=== PATIENT | female | born 1995 | race Two or more races ===

== ENCOUNTER 2022-10-03 12:07 | Outpatient (CLI) | payer OTHER | END 2022-10-03 13:24 | disposition home or self-care (01) | LOC: PRENATAL 12:07 | PROVIDERS: ATTEND Obstetrics & Gynecology Maternal & Fetal Medicine | DX: O36.80X0 Pregnancy with inconclusive fetal viability, not applicable or unspecified (principal); Z3A.13 13 weeks gestation of pregnancy ==

== ENCOUNTER 2022-11-19 08:18 | Outpatient (CLI) | payer OTHER | END 2022-11-19 09:20 | disposition home or self-care (01) | LOC: PRENATAL 08:18 | PROVIDERS: ATTEND Obstetrics & Gynecology Maternal & Fetal Medicine | DX: O35.3XX0 Maternal care for (suspected) damage to fetus from viral disease in mother, not applicable or unspecified (principal); O44.00 Complete placenta previa NOS or without hemorrhage, unspecified trimester; Z3A.19 19 weeks gestation of pregnancy ==

== ENCOUNTER 2023-02-18 10:09 | Outpatient (CLI) | payer OTHER | END 2023-02-18 10:40 | disposition home or self-care (01) | LOC: PRENATAL 10:09 | PROVIDERS: ATTEND Obstetrics & Gynecology Maternal & Fetal Medicine | DX: O26.849 Uterine size-date discrepancy, unspecified trimester (principal); O36.8199 Decreased fetal movements, unspecified trimester, other fetus; Z3A.32 32 weeks gestation of pregnancy ==

== ENCOUNTER 2023-03-07 17:08 | Outpatient (CLI) | payer OTHER ==
[2023-03-07] MEDS ORDERED: PRENATAL TABLE1 EAC1 PO (17:24)
[2023-03-07] MEDS ORDERED: PEPCID AC10 MG PO (17:25)
[2023-03-07 17:39] LABS: URINE APPEARANCE Cloudy; URINE BILIRRUBIN Negative (NEGATIVE); URINE BLOOD Moderate; URINE COLOR Yellow; URINE GLUCOSE Negative (NEGATIVE); URINE LEUKOCYTE Moderate; URINE NITRATE Positive
[2023-03-07 17:40] LABS: URINE BACTERIA 2755.4 uL (0.0-1933); URINE EPITHELIAL CELLS 28.2 uL (0.0-38.8); URINE RBC 158.6 uL (0.0-20.8); URINE WBC 1668.6 uL (0.0-23.2)
[2023-03-07 17:49] LABS: URINE PROTEIN 300 (NEGATIVE)
[2023-03-07 17:59] LABS: HEMATOCRIT 38.6 % (36.0-45.00); HEMOGLOBIN 12.9 g/dL (12.0-15.00); MEAN CELL VOLUME 96.7 fL (80.00-100.00); MEAN CORPUSCULAR HEMOGLOBIN 32.4 pg (27.00-32.0); MEAN CORPUSCULAR HGB CONC 33.5 g/dl (32.0-36.0); PLATELET COUNT 216 K/uL (150-450); RED BLOOD COUNT 3.99 M/uL (4.00-6.00)
== END 2023-03-08 15:29 | disposition home or self-care (01) ==
LOC: OBS/DEL 17:08
PROVIDERS: Obstetrics & Gynecology; ATTEND Obstetrics & Gynecology
DX: O23.33 Infections of other parts of urinary tract in pregnancy, third trimester (principal); N39.0 Urinary tract infection, site not specified; Z3A.35 35 weeks gestation of pregnancy; Z20.822 Contact with and (suspected) exposure to COVID-19

== ENCOUNTER 2023-03-28 15:00 | Inpatient (IN) | payer OTHER ==
[~2023-03-28] VITALS: Ht 157.5 cm; Wt 3.2 kg
[~2023-03-28 15:00] MED LIST: PEPCID AC10 MG PO; PRENATAL TABLE1 EAC1 PO
[2023-04-01 09:24] LABS: URINE APPEARANCE Clear; URINE BILIRRUBIN Negative (NEGATIVE); URINE BLOOD Negative; URINE COLOR Yellow; URINE GLUCOSE Negative (NEGATIVE); URINE LEUKOCYTE Trace; URINE NITRATE Negative; URINE PROTEIN Negative (NEGATIVE); URINE UROBILINOGEN 0.2 E.U./dl
[2023-04-01 09:25] LABS: URINE BACTERIA 2097.6 uL (0.0-1933); URINE EPITHELIAL CELLS 51.4 uL (0.0-38.8); URINE WBC 36.4 uL (0.0-23.2)
[2023-04-01 09:35] LABS: HEMATOCRIT 38.9 % (36.0-45.00); HEMOGLOBIN 13.1 g/dL (12.0-15.00); MEAN CELL VOLUME 96.8 fL (80.00-100.00); MEAN CORPUSCULAR HEMOGLOBIN 32.5 pg (27.00-32.0); MEAN CORPUSCULAR HGB CONC 33.6 g/dl (32.0-36.0); PLATELET COUNT 176 K/uL (150-450); RED BLOOD COUNT 4.02 M/uL (4.00-6.00); RED CELL DISTRIBUTION WIDTH 13.6 % (11.5-14.5)
[2023-04-01 10:07] LABS: INR < 0.93; PARTIAL THROMBOPLASTIN TIME 27.3 SECONDS (22.0-34.0); PROTHROMBIN TIME 9.6 SECONDS (9.0-11.5)
[2023-04-01 19:34] LABS: ABG PH 7.328 (7.35-7.45); ABG PO2 26.5 mmHg (80-100); ABG pCO2 41.9 mmHg (35-45); BASE EXCESS -4.3 mmol/l; BICARBONATE 21.5 mmol/l (23-25); SaO2 42.4 %; Tco2 22.8 mmol/l; o2 21 %
[2023-04-02 07:25] LABS: HEMATOCRIT 32.1 % (36.0-45.00); HEMOGLOBIN 10.9 g/dL (12.0-15.00); MEAN CELL VOLUME 96.3 fL (80.00-100.00); MEAN CORPUSCULAR HEMOGLOBIN 32.6 pg (27.00-32.0); MEAN CORPUSCULAR HGB CONC 33.8 g/dl (32.0-36.0); PLATELET COUNT 155 K/uL (150-450); RED BLOOD COUNT 3.34 M/uL (4.00-6.00); RED CELL DISTRIBUTION WIDTH 13.7 % (11.5-14.5)
== END 2023-04-04 17:28 | disposition home or self-care (01) | DRG 788 ==
LOC: LDR 04-01 07:39 → O/R 04-01 17:39 → OB/GYN 04-01 19:17 → LDR 04-07 15:00
PROVIDERS: ADMIT Obstetrics & Gynecology; ATTEND Obstetrics & Gynecology
PROC: 4A1HXCZ Monitoring of Products of Conception, Cardiac Rate, External Approach (ICD-10-PCS; 2023-04-01)
PROC: 10D00Z1 Extraction of Products of Conception, Low, Open Approach (ICD-10-PCS; principal; 2023-04-01 16:00)
DX: O33.8 Maternal care for disproportion of other origin (principal); Z3A.39 39 weeks gestation of pregnancy; Z37.0 Single live birth; Z20.822 Contact with and (suspected) exposure to COVID-19